=== PATIENT | male | born 1970 | race Caucasian/White ===

== ENCOUNTER → 2023-11-15 | Emergency (ER) | payer SELFPAY ==
--- NOTE | 2023-11-15 19:12 | RAD REPORT ---
EXAM DESCRIPTION: CT - Thorax Wo Con CLINICAL HISTORY: Chest pain RIB PAIN - RIGHT COMPARISON: Chest For Pe Angio dated 09/23/2017 FINDINGS: The lungs are clear. No pleural thickening or pleural effusion. No pneumothorax. No axillary, mediastinal or hilar adenopathy. No concerning bony finding. Cholelithiasis. All CT scans are performed using dose optimization technique as appropriate and may include automated exposure control or mA/KV adjustment according to patient size. IMPRESSION: No acute findings seen.Cholelithiasis.
--- NOTE | 2023-11-15 20:02 | ER ---
Nurse's Notes [facility] Name: Gee Katz Age: 53 yrs Sex: Male : 1970 Arrival Date: 11/15/2023 Time: 18:27 Bed 12 Private MD: Diagnosis: Chest wall pain, contusion Presentation: 11/14 18:43 Chief complaint: Patient states: slipped off step of his 18 chapman and hit right side iw of chest on running board. Risk Assessment: Do you want to hurt yourself or someone else? Patient reports no desire to harm self or others. 18:43 Method Of Arrival: Ambulatory iw 18:43 Acuity: JOSSELIN 4 iw 18:43 Coronavirus screen: At this time, the client does not indicate any symptoms associated iw with coronavirus-19. Ebola Screen: Patient negative for fever greater than or equal to 101.5 degrees Fahrenheit, and additional compatible Ebola Virus Disease symptoms Patient denies exposure to infectious person. Patient denies travel to an Ebola-affected area in the 21 days before illness onset. No symptoms or risks identified at this time. Initial Sepsis Screen: Does the patient meet any 2 criteria? No. Patient's initial sepsis screen is negative. Does the patient have a suspected source of infection? No. Patient's initial sepsis screen is negative. Onset of symptoms was November 04, 2023. Historical: - Allergies: 18:45 Benadryl; iw 18:45 PENICILLINS; iw - PMHx: 18:45 Depression; Diabetes - NIDDM; Gout; Hypertension; iw - Immunization history:: Adult Immunizations up to date. - Social history:: Smoking status: Patient denies any tobacco usage or history of. Screenin:27 [facility] ED Fall Risk Assessment (Adult) History of falling in the last 3 months, mb9 including since admission Yes- single mechanical fall (1 pt) Confusion or Disorientation No (0 pts) Intoxicated or Sedated No (0 pts) Impaired Gait No (0 pts) Mobility Assist Device Used No (0 pt) Altered Elimination No (0 pt) Score/Fall Risk Level 0 - 2 = Low Risk Oriented to surroundings, Maintained a safe environment, Educated pt \T\ family on fall prevention, incl call for assistance when getting out of bed. Abuse screen: Denies threats or abuse. Nutritional screening: No deficits noted. Tuberculosis screening: No symptoms or risk factors identified. Assessment: 19:28 General: Appears in no apparent distress. Behavior is calm. Pain: Complains of pain in mb9 chest Quality of pain is described as throbbing. Neuro: [place] Agitation-Sedation Scale (RASS): 0 - Alert and Calm Level of Consciousness is awake, alert, obeys commands, Oriented to person, place, time, situation, Appropriate for age. Cardiovascular: Patient's skin is warm and dry. Respiratory: Airway is patent Respiratory effort is even, unlabored, Respiratory pattern is regular, symmetrical. GI: No signs and/or symptoms were reported involving the gastrointestinal system. : No signs and/or symptoms were reported regarding the genitourinary system. EENT: No signs and/or symptoms were reported regarding the EENT system. Derm: Skin is pink, warm \T\ dry. Musculoskeletal: Range of motion: intact in all extremities. Vital Signs: 18:43 BP 176 / 82; Pulse 92; Resp 16; Temp 97.4; Pulse Ox 100% on R/A; Weight 99.79 kg; iw Height 5 ft. 9 in. ; Pain 8/10; 20:12 BP 155 / 75; Pulse 84; Resp 18; Pulse Ox 98% on R/A; mb9 18:43 Body Mass Index 32.49 (99.79 kg, 175.26 cm) iw 18:43 Pain Scale: Adult iw ED Course: 18:30 Patient arrived in ED. rg4 18:36 Tatianna Aguilar FNP-C is [facility]. kb 18:36 Adriel Vigil MD is Attending Physician. kb 18:45 Triage completed. iw 19:01 CT Chest Wo Con In Process Unspecified. EDMS 19:27 Savannah Crenshaw, VALENTIN is Primary Nurse. mb9 19:27 Arm band placed on. mb9 19:27 Bed in low position. Call light in reach. Side rails up X 1. Client placed on mb9 continuous cardiac and pulse oximetry monitoring. NIBP monitoring applied. Door closed. Noise minimized. Warm blanket given. 19:28 No provider procedures requiring assistance completed. mb9 19:29 Patient did not have IV access during this emergency room visit. mb9 Administered Medications: No medications were administered Medication: 19:28 VIS not applicable for this client. mb9 Outcome: 20:01 Discharge ordered by MD. fowler 20:12 Discharged to home ambulatory, mb9 20:12 Condition: stable 20:12 Discharge instructions given to patient, Instructed on discharge instructions, follow up and referral plans. Demonstrated understanding of instructions, follow-up care, 20:13 Patient left the ED. mb9 Signatures: Dispatcher [employer] EDTatianna Henderson, SENIOR BUSINESS MANAGER-C SENIOR BUSINESS MANAGER-Bree Jang, RN RN Taylor Quintero 4 Savannah Crenshaw, RN RN mb9 Corrections: (The following items were deleted from the chart) 18:46 18:43 Pulse 92bpm; Resp 16bpm; Pulse Ox 100% RA; Temp 97.4F; iw brittany
--- NOTE | 2023-11-15 20:02 | EDPHYS ---
Physician Documentation [facility] Name: Gee Katz Age: 53 yrs Sex: Male : 1970 Arrival Date: 11/15/2023 Time: 18:27 Bed 12 Private MD: ED Physician Adriel Vigil HPI: 11/14 20:00 This 53 yrs old Male presents to ER via Ambulatory with complaints of Rib pain. kb 20:00 Patient is a 53-year-old male who slipped on the step of his 18 chapman and it was kb raining 1 week ago and fell hitting his chest on the running board. States he has continued to have pain to the area so he came to get it evaluated. Denies shortness of breath, palpitations, nausea, vomiting, diarrhea. Denies LOC at the time of fall.. Historical: - Allergies: 18:45 Benadryl; iw 18:45 PENICILLINS; iw - PMHx: 18:45 Depression; Diabetes - NIDDM; Gout; Hypertension; iw - Immunization history:: Adult Immunizations up to date. - Social history:: Smoking status: Patient denies any tobacco usage or history of. ROS: 20:00 Constitutional: As per HPI kb Exam: 20:00 Constitutional: This is a well developed, well nourished patient who is awake, alert, kb and in no acute distress. Head/Face: Normocephalic, atraumatic. ENT: Moist Mucous membranes Cardiovascular: Regular rate Respiratory: Respirations even and unlabored. No increased work of breathing. Talking in full sentences Abdomen/GI: Soft, non-tender. No distention Skin: Warm, dry with normal turgor. Normal color. MS/ Extremity: Pulses equal, no cyanosis. Neurovascular intact. Full, normal range of motion. Neuro: Awake and alert, GCS 15, oriented to person, place, time, and situation. Moves all extremities. Normal gait. 20:00 Chest/axilla: Inspection: normal, Palpation: tenderness, that is mild, that is moderate, of the anterior aspect of right upper chest, mid-sternal area and right breast, Vital Signs: 18:43 BP 176 / 82; Pulse 92; Resp 16; Temp 97.4; Pulse Ox 100% on R/A; Weight 99.79 kg; iw Height 5 ft. 9 in. ; Pain 8/10; 20:12 BP 155 / 75; Pulse 84; Resp 18; Pulse Ox 98% on R/A; mb9 18:43 Body Mass Index 32.49 (99.79 kg, 175.26 cm) iw 18:43 Pain Scale: Adult iw MDM: 18:36 Patient medically screened. kb 20:01 Differential diagnosis: Fracture, contusion. Data reviewed: vital signs, nurses notes. kb Counseling: I had a detailed discussion with the patient and/or guardian regarding the historical points, exam findings, and any diagnostic results supporting the discharge/admit diagnosis, radiology results, the need for outpatient follow up, a family practitioner, to return to the emergency department if symptoms worsen or persist or if there are any questions or concerns that arise at home. 11/14 18:39 Order name: CT Chest Wo Con; Complete Time: 19:33 iw Administered Medications: No medications were administered Disposition Summary: 11/15/23 20:01 Discharge Ordered Notes: Location: Home kb Condition: Stable kb Diagnosis - Chest wall pain, contusion kb Followup: kb - With: Emergency Department - When: As needed - Reason: Worsening of condition Followup: kb - With: Private Physician - When: 2 - 3 days - Reason: Recheck today's complaints, Continuance of care, Re-evaluation by your physician Discharge Instructions: - Discharge Summary Sheet kb - Chest Wall Pain, [id number] kb Forms: - Medication Reconciliation Form kb - Thank You Letter kb - Antibiotic Education kb - Prescription Opioid Use kb - Patient Portal Instructions kb - Leadership Thank You Letter kb Signatures: Dispatcher [employer] Tatianna Morton, STEPHANIE MORENOP-Bree Jnag, RN RN Savannah Helms, RN RN mb9
[2023-11-15 20:44] VITALS: BP 155/75; TEMP 97.4; O2SAT 98
== END ==
LOC: ER 18:27
DX: S20.211A Contusion of right front wall of thorax, initial encounter (principal)
CPT/HCPCS: 71250; 99283